=== PATIENT | female | born 1945 | race Caucasian/White ===

== ENCOUNTER 2019-02-06 11:00 | Emergency (ER) | payer MEDICARE, MEDICAID ==
[~2019-02-06] VITALS: Ht 162.6 cm; Wt 73.1 kg
[2019-02-06 11:13] VITALS: BP 112/59
[2019-02-06] MEDS ORDERED: INHA1EAC68 MC (13:57)
[2019-02-06] MEDS ORDERED: ALBU8.5H8 INH (13:57)
[2019-02-06] MEDS ORDERED: BENZ-16 PO (13:57)
== END 2019-02-06 14:22 | disposition home or self-care (01) ==
LOC: ER 11:02
DX: J20.9 Acute bronchitis, unspecified (principal); Z79.899 Other long term (current) drug therapy; Z87.891 Personal history of nicotine dependence
CPT/HCPCS: 71046; 99283